=== PATIENT | male | born 1995 | race Asian ===

== ENCOUNTER 2025-03-14 07:48 | Emergency (ER) | payer BC ==
[2025-03-14 08:28] LABS: Absolute Lymphocytes (CBC) 3.1 K/uL (0.7-4.9); Hematocrit 43.6 % (39.6-49.0); Hemoglobin 14.7 g/dL (13.6-17.9); MCH 26.5 pg (27.0-35.0); MCHC 33.6 g/dL (32.0-36.0); MCV 78.9 fL (80-100); MPV 7.2 fL (7.6-11.3); Nucleated RBC Absolute Count 0.0 (0-0); Nucleated Red Blood Cells % 0.0 % (0-0); RBC Red Blood Cell Count 5.52 M/uL (4.33-5.43); White Blood Count 7.30 thou/uL (4.3-10.9)
[2025-03-14 08:33] LABS: PT Prothrombin Time 11.7 SECONDS (10-13.0); Protime INR 1.04
--- NOTE | 2025-03-14 08:37 | RAD REPORT ---
EXAMINATION: Head Brain Wo Cont CLINICAL INDICATION: Male, 30 years old.HTN, paresthesias TECHNIQUE: Axial CT images from the skull base to the vertex without intravenous contrast. Coronal an d sagittal reformatted images were created from the data set. One or more of the following dose reduction techniques were used: Automated exposure control, adjustment of the mA and/or kV according to patient size, and/or iterative reconstruction. Unless otherwise specified, incidental findings do not require dedicated imaging follow-up. [id number]. COMPARISON: No prior exams FINDINGS: INTRACRANIAL: No acute intracranial hemorrhage. No acute large vascular territory infarct. No hydroce phalus. No mass effect or midline shift. No significant white matter disease. VASCULATURE: No visualized abnormalities in the arteries or dural venous sinuses. SCALP/SKULL: No calvarial fracture identified. No acute soft tissue abnormality. SINUSES: The visualized paranasal sinuses are mostly clear. No significant mastoid fluid. IMPRESSION: No acute intracranial abnormality.
[2025-03-14 08:47] LABS: ALT/SGPT 68.0 U/L (16-61); AST/SGOT 22.0 U/L (15-37); Albumin 4.0 g/dL (3.4-5.0); Albumin/Globulin Ratio 1.0 (1.1-1.8); Alkaline Phosphatase 66.0 U/L (45-117); Anion Gap 9.9 mEq/L (5.0-15.0); BUN Blood Urea Nitrogen 15.0 mg/dL (7-18); Bilirubin Indirect, Calculated 1.0 mg/dL (0.2-0.8); Globulin 4.0 g/dL (2.3-3.5); Glucose Level 104.0 mg/dL (74-106); NT PRO-BNP 25.0 pg/mL (<125); Potassium 3.9 mEq/L (3.5-5.1); Troponin High Sensitivity 22.5 pg/mL (<58.9)
--- NOTE | 2025-03-14 08:47 | RAD REPORT ---
EXAM: Chest Single View HISTORY: 30 years Male HTN, paresthesia right arm COMPARISON: No prior exams FINDINGS: LUNGS/PLEURA: The lungs are clear. No pleural effusions or pneumothorax. No pulmonary edema. CARDIAC/MEDIASTINUM: The cardiac silhouette is within normal limits. UPPER ABDOMEN: No significant abnormality. BONES: No acute abnormality. LINES/TUBES/OTHER: N/A IMPRESSION: No evidence of acute cardiopulmonary disease.
--- NOTE | 2025-03-14 09:22 | ER ---
Nurse's Notes [facility] Name: Michael Harris Age: 30 yrs Sex: Male : 1995 Arrival Date: 03/14/2025 Time: 07:48 Bed 14 Private MD: Diagnosis: Essential (primary) hypertension Presentation: 03/14 08:00 Chief complaint: Patient states: HYPERTENSION STARTED TODAY BP WAS 160S/100. RIGHT ARM db TINGLING AND ALL OVER BODY TINGLING. HX OF ANXIETY. DENIES TAKING MEDICATIONS. Coronavirus screen: Client denies travel out of the [place] in the last 14 days. At this time, the client does not indicate any symptoms associated with coronavirus-19. Ebola Screen: Patient negative for fever greater than or equal to 101.5 degrees Fahrenheit, and additional compatible Ebola Virus Disease symptoms Patient denies exposure to infectious person. Patient denies travel to an Ebola-affected area in the 21 days before illness onset. No symptoms or risks identified at this time. Initial Sepsis Screen: Does the patient meet any 2 criteria? No. Patient's initial sepsis screen is negative. Does the patient have a suspected source of infection? No. Patient's initial sepsis screen is negative. Risk Assessment: Do you want to hurt yourself or someone else? Patient reports no desire to harm self or others. Onset of symptoms was March 14, 2025. 08:00 Method Of Arrival: Ambulatory db 08:00 Acuity: SOFIA 2 db Triage Assessment: 08:06 General: Appears in no apparent distress. comfortable, Behavior is calm, cooperative, db anxious. Pain: Denies pain. Neuro: Level of Consciousness is awake, alert, obeys commands, Oriented to person, place, time, situation. Respiratory: Airway is patent Respiratory effort is even, Respiratory pattern is regular, symmetrical. Historical: - Allergies: 08:06 No Known Allergies; db - PMHx: 08:06 Anxiety; db - Immunization history:: Adult Immunizations unknown. - Infectious Disease History:: Denies. - Social history:: Smoking status: Patient denies any tobacco usage or history of. - Family history:: pertinent for hypertension. - Hospitalizations: : No recent hospitalization is reported. Screenin:50 [facility] ED Fall Risk Assessment (Adult) History of falling in the last 3 months, db including since admission No falls in past 3 months (0 pts) Confusion or Disorientation No (0 pts) Intoxicated or Sedated No (0 pts) Impaired Gait No (0 pts) Mobility Assist Device Used No (0 pt) Altered Elimination No (0 pt) Score/Fall Risk Level 0 - 2 = Low Risk Oriented to surroundings, Maintained a safe environment. Abuse screen: Denies threats or abuse. Denies injuries from another. Nutritional screening: No deficits noted. Tuberculosis screening: No symptoms or risk factors identified. Assessment: 08:22 Reassessment: Patient appears in no apparent distress at this time. Patient and/or db family updated on plan of care and expected duration. Pain level reassessed. Patient is alert, oriented x 3, equal unlabored respirations, skin warm/dry/pink. General: Appears in no apparent distress. comfortable, Behavior is calm, cooperative. Neuro: Level of Consciousness is awake, alert, obeys commands, Oriented to person, place, time, situation. Respiratory: Airway is patent Respiratory effort is even, unlabored, Respiratory pattern is regular, symmetrical. 09:35 Reassessment: Patient appears in no apparent distress at this time. Patient and/or db family updated on plan of care and expected duration. Pain level reassessed. Patient is alert, oriented x 3, equal unlabored respirations, skin warm/dry/pink. Patient states feeling better. Patient states symptoms have improved. Vital Signs: 08:00 BP 189 / 132; Pulse 73; Resp 16; Temp 98.7; Pulse Ox 100% ; Weight 77.56 kg (M); Height db 5 ft. 8 in. ; Pain 0/10; 08:25 BP 157 / 106; Pulse 59; Resp 16; Pulse Ox 99% ; db 08:30 BP 151 / 119; Pulse 60; Resp 16; Pulse Ox 99% on R/A; db 09:05 BP 133 / 91; Pulse 57; Resp 16; Pulse Ox 100% on R/A; db 09:19 BP 133 / 91; rn 08:00 Body Mass Index 26.00 (77.56 kg, 172.72 cm) db 08:00 Pain Scale: Adult db ED Course: 07:52 Patient arrived in ED. ts1 07:57 Ja Hernandez MD is Attending Physician. rn 08:04 Shereen Salazar RN is Primary Nurse. db 08:06 Triage completed. db 08:06 Arm band placed on Patient placed in an exam room. db 08:19 Patient has correct armband on for positive identification. Bed in low position. Call db light in reach. Side rails up X 1. Client placed on continuous cardiac and pulse oximetry monitoring. NIBP monitoring applied. nurse monitoring on. Pulse ox on. NIBP on. 08:19 Initial lab(s) drawn, by me, sent to lab. Inserted saline lock: 20 gauge in right db antecubital area, using aseptic technique. Blood collected. Flushed with 10 mL NS. 08:[address] via wheelchair. db 08:27 CT Head Brain wo Cont In Process Unspecified. EDMS 08:45 XRAY Chest (1 view) In Process Unspecified. EDMS 08:58 EKG done, by ED staff, reviewed by Ja Hernandez MD. pm7 09:35 Provided Education on: DISCHARGE AND FOLLOWUP. db 09:35 No provider procedures requiring assistance completed. IV discontinued, intact, db bleeding controlled, No redness/swelling at site. Administered Medications: 08:13 Drug: cloNIDine PO 0.1 mg PO once Route: PO; db 09:36 Follow up: Response: No adverse reaction; Blood pressure is lowered db Medication: 08:50 VIS not applicable for this client. db Outcome: 09:21 Discharge ordered by . rn 09:35 Discharged to home ambulatory, with family, db 09:35 Condition: stable 09:35 Discharge instructions given to patient, Instructed on discharge instructions, follow up and referral plans. 09:36 Patient left the ED. db Signatures: Dispatcher [employer] Ja Castorena MD MD rn Benton, Danielle, RN RN db Simpson, Tanya, PAS PAS ts1 Yasmin Lund pm7
--- NOTE | 2025-03-14 09:22 | EDPHYS ---
Physician Documentation [facility] Name: Michael Harris Age: 30 yrs Sex: Male : 1995 Arrival Date: 03/14/2025 Time: 07:48 Bed 14 Private MD: ED Physician Ja Hernandez HPI: 03/14 08:30 This 30 yrs old Male presents to ER via Ambulatory with complaints of High Blood rn Pressure, Tingling right arm. 08:30 Patient reports woke up not feeling well, reports mild headache, foggy, tingling all rn over his body. Patient has hypertension but does not take any medication. Also has family history of hypertension. Reports tingling sensation has resolved. No vision or speech trouble. Was able to walk and drive himself here without focal neurological deficits. States he took his blood pressure and has never been this high before. No chest pain or shortness of breath.. Historical: - Allergies: 08:06 No Known Allergies; db - PMHx: 08:06 Anxiety; db - Immunization history:: Adult Immunizations unknown. - Infectious Disease History:: Denies. - Social history:: Smoking status: Patient denies any tobacco usage or history of. - Family history:: pertinent for hypertension. - Hospitalizations: : No recent hospitalization is reported. ROS: 08:30 Constitutional: Negative for fever, chills, and weight loss, Neck: Negative for injury, rn pain, and swelling, Cardiovascular: Negative for chest pain, palpitations, and edema, Respiratory: Negative for shortness of breath, cough, wheezing, and pleuritic chest pain, Abdomen/GI: Negative for abdominal pain, nausea, vomiting, diarrhea, and constipation, MS/Extremity: Negative for injury and deformity, Skin: Negative for injury, rash, and discoloration, Neuro: Negative for headache, weakness, and seizure, Exam: 08:16 ECG was reviewed by the Attending Physician. rn 08:30 Constitutional: This is a well developed, well nourished patient who is awake, alert, rn and in no acute distress. Ambulatory to room without assistance or difficulty Head/Face: Normocephalic, atraumatic. Cardiovascular: Regular rate and rhythm . No pulse deficits. Respiratory: No increased work of breathing, no retractions or nasal flaring. Abdomen/GI: Soft, non-tender, no masses Skin: Warm, dry MS/ Extremity: Pulses equal, no cyanosis. Neurovascular intact. Full, normal range of motion. Equal circumference. Neuro: Awake and alert, GCS 15, oriented to person, place, time, and situation. Cranial nerves II-XII grossly intact. Motor strength 5/5 in all extremities. Sensory grossly intact. Cerebellar exam normal. Normal gait. Vital Signs: 08:00 BP 189 / 132; Pulse 73; Resp 16; Temp 98.7; Pulse Ox 100% ; Weight 77.56 kg (M); Height db 5 ft. 8 in. ; Pain 0/10; 08:25 BP 157 / 106; Pulse 59; Resp 16; Pulse Ox 99% ; db 08:30 BP 151 / 119; Pulse 60; Resp 16; Pulse Ox 99% on R/A; db 09:05 BP 133 / 91; Pulse 57; Resp 16; Pulse Ox 100% on R/A; db 09:19 BP 133 / 91; rn 08:00 Body Mass Index 26.00 (77.56 kg, 172.72 cm) db 08:00 Pain Scale: Adult db MDM: 07:57 Medical Screening Exam initiated rn 09:20 Differential diagnosis: hypertensive crisis, Malignant HTN. Differential diagnosis: rn intracerebral hemorrhage. Data reviewed: vital signs. Data reviewed: nurses notes, lab test result(s), EKG, radiologic studies, CT scan, plain films, and as a result, I will discharge patient. Independent interpretation of the following test(s) in the Emergency Department EKG: See my EKG interpretation above X-Ray: My interpretation is Chest x-ray images negative for pneumonia or pneumothorax per my interpretation. traffic monitor specialist: rate is 70 beats/min, Rhythm is normal sinus rhythm, regular, with no ectopy, Interpretation: normal rate, normal rhythm. Historians other than the Patient: Parent: Mother states patient stays up late at night playing video games and does not get a lot of sleep.. Care significantly affected by the following chronic conditions: Anxiety and hypertension. Counseling: I had a detailed discussion with the patient and/or guardian regarding the historical points, exam findings, and any diagnostic results supporting the discharge/admit diagnosis, the presence of at least one elevated blood pressure reading (>120/80) during this emergency department visit, lab results, radiology results, the need for outpatient follow up, to return to the emergency department if symptoms worsen or persist or if there are any questions or concerns that arise at home. Response to treatment: the patient's symptoms have markedly improved after treatment, the patient's condition has returned to base line, the patient is now symptom free, and as a result, I will discharge patient. Special discussion: I have referred the patient to see his PCP for further evaluation of high blood pressure. I discussed with the patient/guardian in detail that at this point there is no indication for admission to the hospital. It is understood, however, that if the symptoms persist or worsen the patient needs to return immediately for re-evaluation. Based on the history and exam findings, there is no indication for further emergent testing or inpatient evaluation. I discussed with the patient/guardian the need to see the primary care provider for further evaluation of the symptoms. ED course: Blood pressure down to 133/91, no acute findings on workup. No evidence of intracerebral hemorrhage or stroke. Will discharge home with blood pressure monitoring and taking that data to PCP for further recommendations. I have personally reviewed all of the results, including but not limited to blood tests and imaging deemed necessary to safely discharge this patient at this time. All results given to and printed out for patient. I personally went over all the results with the patient and answered all questions. Patient will follow-up with PCP and or specialist as discussed. Return precautions given and understood.. 03/14 07:57 Order name: Basic Metabolic Panel; Complete Time: 08:48 03/14 07:57 Order name: CBC with Diff; Complete Time: 08:48 03/14 07:57 Order name: LFT's; Complete Time: 08:48 03/14 07:57 Order name: NT PRO-BNP; Complete Time: 08:48 03/14 07:57 Order name: PT-INR; Complete Time: 08:48 03/14 07:57 Order name: Troponin HS; Complete Time: 08:48 03/14 07:57 Order name: XRAY Chest (1 view); Complete Time: 08:48 03/14 08:04 Order name: CT Head Brain wo Cont; Complete Time: 08:48 03/14 07:57 Order name: EKG; Complete Time: 07:58 03/14 07:57 Order name: Cardiac monitoring; Complete Time: 08:25 03/14 07:57 Order name: EKG - Nurse/Tech; Complete Time: 08:25 rn 03/14 07:57 Order name: IV Saline Lock; Complete Time: 08: rn 03/14 07:57 Order name: Labs collected and sent; Complete Time: 08: rn 03/14 07:57 Order name: O2 Per Protocol; Complete Time: 08:25 rn 03/14 07:57 Order name: O2 Sat Monitoring; Complete Time: 08: rn EC:16 Rate is 63 beats/min. Rhythm is regular. QRS [place] is Normal. VT interval is normal. QRS rn interval is normal. QT interval is normal. No Q waves. T waves are Normal. No ST changes noted. Clinical impression: NSR w/ Non-specific ST/T Changes. Interpreted by me. Reviewed by me. Administered Medications: 08:13 Drug: cloNIDine PO 0.1 mg PO once Route: PO; db 09:36 Follow up: Response: No adverse reaction; Blood pressure is lowered db Disposition Summary: 03/14/25 09:21 Discharge Ordered Notes: Location: Home rn Problem: new rn Symptoms: have improved rn Condition: Stable rn Diagnosis - Essential (primary) hypertension rn Followup: rn - With: Private Physician - When: As needed - Reason: Recheck today's complaints, Re-evaluation by your physician Discharge Instructions: - Discharge Summary Sheet rn - Hypertension, Adult rn - Managing Your Hypertension rn Forms: - Medication Reconciliation Form rn - Antibiotic internet systems administrator - Prescription Opioid Use rn - Patient Portal Instructions rn - Leadership Thank You Letter rn Signatures: Dispatcher [employer] EDMS Ja Hernandez MD MD rn Benton, Danielle, RN RN db Corrections: (The following items were deleted from the chart) 07:58 07:58 BASIC METABOLIC PANEL+C.LAB.BRZ ordered. EDMS EDMS 07:58 07:58 CBC+H.LAB.BRZ ordered. EDMS EDMS 07:58 07:58 HEPATIC FUNCTION+C.LAB.BRZ ordered. EDMS EDMS 07:58 07:58 PROBNP+C.LAB.BRZ ordered. EDMS EDMS 07:58 07:58 PROTIME (+INR)+COAG.LAB.BRZ ordered. EDMS EDMS 07:58 07:58 Troponin High Sensitivity+C.LAB.BRZ ordered. EDMS EDMS
[2025-03-14 09:48] VITALS: TEMP 98.7
[2025-03-14 09:54] VITALS: BP 133/91; O2SAT 100
== END 2025-03-14 09:36 | disposition home or self-care (01) ==
LOC: ER 07:48
DX: R20.2 Paresthesia of skin (principal); I10 Essential (primary) hypertension; R51.9 Headache, unspecified; F41.9 Anxiety disorder, unspecified
CPT/HCPCS: 36415; 70450; 71045; 80048; 80076; 83880; 84484; 85025; 85610; 93005; 99285